=== PATIENT | female | born 1960 | race Caucasian/White ===

== ENCOUNTER 2016-08-30 08:07 | Outpatient (CLI) | payer MEDICARE | END 2016-08-30 08:08 | disposition home or self-care (01) | DX: C73 Malignant neoplasm of thyroid gland (principal); E78.2 Mixed hyperlipidemia; E55.9 Vitamin D deficiency, unspecified; Z79.899 Other long term (current) drug therapy; E03.9 Hypothyroidism, unspecified ==

== ENCOUNTER 2017-03-01 10:58 | Outpatient (CLI) | payer MEDICARE ==
--- NOTE | 2017-03-01 16:42 | XRAY Report ---
THREE VIEW CERVICAL SPINE: 03/01/2017 CLINICAL INDICATION: Neck pain. AP, lateral, odontoid views of the cervical spine demonstrate moderate degenerative disk and facet di sease. Disk space narrowing is worst at C5-6. There is no evidence of acute fracture. The preverte bral soft tissues are unremarkable. IMPRESSION: MODERATE DEGENERATIVE CHANGES. JOB #: [id number] EXT JOB #:[id number]
--- NOTE | 2017-03-01 16:43 | XRAY Report ---
RIGHT HIP AND PELVIS: 03/01/2017 CLINICAL INDICATION: Pain. Frontal view of the hips and pelvis, and frog-leg lateral view of the right hip demonstrate mild righ t hip osteoarthritis. Left hip replacement is noted, and there is fusion of the lower lumbar spine. IMPRESSION: MILD RIGHT HIP OSTEOARTHRITIS. JOB #: [id number] EXT JOB #:[id number]
== END 2017-03-01 10:59 | disposition home or self-care (01) ==
LOC: DI 10:58
PROVIDERS: ATTEND Physician Assistant Medical
DX: M50.30 Other cervical disc degeneration, unspecified cervical region (principal); M25.551 Pain in right hip; M16.11 Unilateral primary osteoarthritis, right hip
CPT/HCPCS: 72040

== ENCOUNTER 2017-04-14 13:43 | Outpatient (CLI) | payer MEDICARE ==
--- NOTE | 2017-04-14 21:46 | MRI Report ---
EXAM: MRI LUMBAR SPINE WITHOUT CONTRAST EXAM DATE: 04/14/2017 02:57 PM. CLINICAL HISTORY: SPINAL STENOSIS, LUMBAR REGION WITH NEUROGENIC CLAUDICATION. COMPARISON: MRI lumbar spine 08/19/2015. TECHNIQUE: Multiplanar, multisequence T1-weighted and fluid-sensitive sequences of the lumbar spine f rom T12 to S1 without contrast. Other: None. FINDINGS: Spinal Cord: The conus terminates at L1-L2. No signal abnormality in the visualized spinal cord. Alignment: Grade 1 anterolisthesis of L4 on L5 that appears similar to MR 08/19/2015. Bone Marrow: Five vcn-aix-yqsmicw lumbar vertebral bodies are assumed. Postsurgical changes of L4-L5 posterior spinal instrumented fusion, L4-L5 diskectomy with interbody fusion graft placement, and L4 laminectomy. No acute fracture. Again seen are vertebral body hemangiomas of the L2, S1, and S2 vertebral bodies. No new marrow replacement lesion. There is endplate change, Schmorl's node formation, and changes of diskectomy seen at L4-L5 that appe ars similar to prior study. No definite abnormal bone marrow edema seen. Disk Levels/Facets: T12-L1: Unremarkable. L1-L2: Small posterior disk bulge, arthritic facet disease, and prominent dorsal epidural fat. Minima l spinal canal stenosis. Mild right neural foraminal narrowing and minimal left neural foraminal narr owing. Findings are similar to. L2-L3: Small posterior disk bulge, ligamentum flavum thickening, arthritic facet disease, and promine nt dorsal epidural fat. Again seen is a medially projecting synovial cyst arising from the right face t that is unchanged from 08/19/2015. Fluid is seen within the right facet. There is moderate to severe spinal canal stenosis. Moderate to severe right and neyi-em-eebobtwp left neural foraminal narrowing . Findings are stable. L3-L4: Small posterior disk bulge, ligamentum flavum thickening, arthritic facet disease, and promine nt dorsal epidural fat. Mild spinal canal stenosis. Rwas-as-qnmdckin bilateral neural foraminal narro wing. Findings appear stable. L4-L5: Decompression of the thecal sac. Small posterior disk bulge and bilateral arthritic facet dise ase. No significant spinal canal stenosis. Mild to moderate bilateral neural foraminal narrowing. Fin dings appear stable. L5-S1: Small posterior disk bulge. Bilateral arthritic facet disease. Effacement of lateral recesses. Mild to moderate right and minimal left neural foraminal narrowing. Findings are stable. Musculature: There is mild fatty atrophy of the multifidus muscles beginning at L3 and extending to t he sacrum. There appears to be edema in the multifidus muscles at C7 levels. Other: The visualized pelvic cavity is unremarkable. IMPRESSION: 1. Postsurgical changes of L4-L5 posterior spinal instrumented fusion, L4-L5 diskectomy with interbod y fusion graft placement, and L4 laminectomy. 2. Grade 1 anterolisthesis of L4 on L5 that appears similar to MR 08/19/2015. 3. Multilevel degenerative changes appear similar to 08/19/2015. L1-L2: Minimal spinal canal stenosis. Mild right neural foraminal narrowing and minimal left neural f oraminal narrowing. L2-L3: Moderate to severe spinal canal stenosis. Moderate to severe right and ykme-ue-dpzmzasa left n eural foraminal narrowing. L3-L4: Mild spinal canal stenosis. Bthb-an-yebndoxn bilateral neural foraminal narrowing. L4-L5: No significant spinal canal stenosis. Mild to moderate bilateral neural foraminal narrowing. L5-S1: Effacement of lateral recesses. Mild to moderate right and minimal left neural foraminal narro wing. Comment: The following findings are so common in adults without low back pain that while we report th eir presence, they must be interpreted with caution and in the context of the clinical situation. (Re elie Campos et al, Spine 2001) Prevalence of findings in patients without low back pain: Disk degeneration (any evidence): 92% Disk desiccation/T2 signal loss: 83% Disk height loss: 56% Disk bulge: 64% Disk protrusion: 32% Annular tear/high intensity zone: 38% [facility] Referring Provider Line: [phone] SITE ID: [id number]
--- NOTE | 2017-04-15 14:24 | MRI Report ---
EXAM: MRI CERVICAL SPINE WITHOUT CONTRAST EXAM DATE: 04/14/2017 03:17 PM. CLINICAL HISTORY: Left-sided neck pain. Arm pain. COMPARISONS: None. TECHNIQUE: Multiplanar, multisequence T1-weighted and fluid-sensitive sequences of the cervical spine without contrast. Other: None. FINDINGS: Neurologic Structures: No focal lesion or signal abnormality of the cervical spinal cord. This includ es where the anterior spinal cord is mildly compressed by posterior disk protrusions with osteophyte at the C4-C5 and C5-C6 disk levels. Alignment: Generalized cervical lordosis straightening. Bone Marrow: Mild degenerative endplate signal changes. For example, anteriorly at the C6-C7 level. Interspace Levels/Facets: C1-C2: Unremarkable. C2-C3: No significant stenosis. Small midline posterior disk protrusion. Mild to moderate left side f acet arthropathy. C3-C4: Mild degenerative disk disease. No significant stenosis. Mild left facet arthropathy. Shallow posterior disk bulge. Anterior spurring. C4-C5: Mild to moderate degenerative disk disease. Moderate central stenosis from a broad-based poste rior disk protrusion with osteophyte. Ventral thecal sac effacement. Mild broad-based compression of the anterior surface of the spinal cord by the posterior disk protrusion. Midline AP dimension of the central canal is about 7 mm. Some CSF space is present dorsal to the cord. Mild right greater than l eft facet arthropathy. Mild to moderate bilateral foraminal stenosis. C5-C6: Moderate to marked degenerative disk disease. Anterior and posterior marginal spurring. Modera tely prominent central canal stenosis with anterior cord compression by the broad-based posterior dis k osteophyte complex. Midline AP dimension of the central canal is reduced to about 6.7 mm. Foraminal stenosis is present, minimal to mild on the right but moderate to severe on the left. Prominent left intraforaminal asymmetric left side disk protrusion with osteophytic spurring. C6-C7: Moderately prominent degenerative disk disease. Mild central stenosis without cord compression . Shallow posterior disk protrusion. Moderate to severe bilateral foraminal stenosis, left worse than right from uncinate process spurring accompanied by intraforaminal disk protrusion. Minimal facet ar thropathy. C7-T1: Mild to moderate degenerative disk disease. Shallow posterior disk protrusion at the left of m idline but no significant central stenosis. Foraminal stenosis is mild. Musculature: Mild diffuse posterior paraspinal muscle fatty atrophy. Other: No focal prevertebral edema. IMPRESSION: 1. Degenerative foraminal stenosis is most prominent at C4-C5 through C7-T1. 2. Posterior disk protrusions with osteophyte, with associated central stenosis and ventral cord impi ngement at multiple levels, most prominent at C4-C5 and C5-C6. Also present but less prominent at the remaining cervical levels. 3. No focal cord signal abnormality. 4. Potentially significant degenerative foraminal stenosis is present at multiple levels. Foraminal s tenosis appears most severe on the left at C5-C6 and bilaterally at C6-C7. [facility] Referring Provider Line: [phone] SITE ID: [id number]
== END 2017-04-14 13:44 | disposition home or self-care (01) ==
LOC: DI 13:43
PROVIDERS: ATTEND Orthopaedic Surgery
DX: M50.221 Other cervical disc displacement at C4-C5 level (principal); M50.31 Other cervical disc degeneration, high cervical region; M47.892 Other spondylosis, cervical region; M47.896 Other spondylosis, lumbar region; M51.36 Other intervertebral disc degeneration, lumbar region; Z98.1 Arthrodesis status; M43.16 Spondylolisthesis, lumbar region
CPT/HCPCS: 72141; 72148

== ENCOUNTER 2017-09-03 08:43 | Outpatient (CLI) | payer MEDICARE ==
--- NOTE | 2017-09-03 17:10 | Nuclear Medicine Report ---
EXAM: TRIPLE-PHASE BONE SCAN LIMITED EXAM DATE: 09/03/2017 02:33 PM. CLINICAL HISTORY: SPONTANEOUS RUPTURE OF QUADRICEPS TENDON, KNEE BRYN. COMPARISON: None available. TECHNIQUE: Patient was injected with 31.5 mCi of technetium 99m MDP intravenously with flow phase pranay ma camera imaging anteriorly over the knees, 5 seconds per frame for 1 minute. Subsequently, blood po ol images of the knees were obtained. The patient returned 3 hours later for multiple spot images of the knees. FINDINGS: Flow Phase: There is symmetric flow to bilateral extremities. Blood Pool Phase: There is photopenia from a left knee prostheses. No abnormal increased radiotracer accumulation. Delayed Phase: There is asymmetric increased radiotracer uptake in the distal left femur and proximal left tibia compared to the right. IMPRESSION: 1. No abnormal hyperemia. 2. Asymmetric delayed phase increased uptake in the distal left femur and proximal left tibia. [facility] Referring Provider Line: [phone] SITE ID: [id number]
== END 2017-09-03 08:44 | disposition home or self-care (01) ==
LOC: DI 08:43
PROVIDERS: ATTEND Physician Assistant Medical
DX: M66.862 Spontaneous rupture of other tendons, left lower leg (principal)
CPT/HCPCS: 78315; A9503

== ENCOUNTER 2017-10-03 14:43 | Outpatient (CLI) | payer MEDICARE ==
--- NOTE | 2017-10-03 18:05 | MRI Report ---
EXAM: MRI LEFT FEMUR/THIGH WITHOUT CONTRAST EXAM DATE: 10/03/2017 03:52 PM. CLINICAL HISTORY: Quadriceps muscle rupture, left. Left leg pain. COMPARISON: None. TECHNIQUE: Multiplanar, multisequence T1-weighted and fluid-sensitive sequences of the bilateral thig hs without contrast. Other: Motion artifact. FINDINGS: Bones: No fractures or subluxations. No marrow edema. No bone lesions. Joint Spaces: Hip arthroplasty. Knee arthroplasty. Tendons: The visualized hamstring origins are unremarkable. Distal quadriceps tendon is attenuated bu t does appear to be intact. No focal fluid-filled gaps. Musculature: Moderate fatty atrophy of the quadriceps musculature. Other: The visualized sciatic and femoral nerves are unremarkable. The subcutaneous tissues are unrem arkable. IMPRESSION: 1. Distal quadriceps tendon is attenuated, appears to be intact. No focal fluid collections. 2. Hip arthroplasty and knee arthroplasty. 3. Moderate fatty atrophy of the quadriceps musculature. [facility] MUSCULOSKELETAL RADIOLOGY SECTION Referring Provider Line: [phone] SITE ID: [id number]
== END 2017-10-03 14:44 | disposition home or self-care (01) ==
LOC: DI 14:43
PROVIDERS: ATTEND Orthopaedic Surgery Adult Reconstructive Orthopaedic Surgery
DX: M62.552 Muscle wasting and atrophy, not elsewhere classified, left thigh (principal); Z96.642 Presence of left artificial hip joint; Z96.652 Presence of left artificial knee joint

== ENCOUNTER 2018-03-21 16:33 | Emergency (ER) | payer MEDICARE ==
--- NOTE | 2018-03-21 18:10 | ED Physician Documentation ---
PD HPI LOWER EXT INJURY - Stated complaint Stated Complaint: KNEE INJURY - Chief complaint Chief Complaint: Ext Problem - History obtained from History obtained from: Patient - History of Present Illness PD HPI LOW EXT INJURY LOCATION: Right, Knee Type of injury: Fall, Blunt / blow (she fell and landed onto right knee, with laceration infrapatellar area. Able to walk and stand without joint pain.) Timing - onset: Today Timing - details: Abrupt onset Worsened by: Palpating. No: Moving Associated symptoms: No: Weakness, Numbness, Swelling Similar symptoms before: Has not had sx before Recently seen: Not recently seen Review of Systems Constitutional: denies: Fever, Chills Cardiac: denies: Chest pain / pressure, Palpitations Respiratory: denies: Dyspnea, Cough Neurologic: denies: Focal weakness, Numbness, Altered mental status PD PAST MEDICAL HISTORY - Past Medical History Cardiovascular: None Respiratory: None Endocrine/Autoimmune: None GI: None : Chronic bladder infection HEENT: None Psych: None Musculoskeletal: Osteoarthritis, Rheumatoid arthritis, Chronic back pain - Past Surgical History General: Appendectomy Ortho: Hip replacement, Knee replacement, Spine surgery /CNC OPERATOR: Hysterectomy HEENT: Other - Present Medications Home Medications: Ambulatory Orders Medication Instructions Recorded Confirmed Ibuprofen [Advil Liqui-Gels] 200 mg ORAL DAILY 12/18/13 08/23/14 Tramadol HCl [Ultram] 50 mg ORAL BID PRN 12/18/13 08/23/14 Levothyroxine [Synthroid] 50 mcg 08/23/14 08/23/14 - Allergies Allergies/Adverse Reactions: Allergies Allergy/AdvReac Type Severity Reaction Status Date / Time No Known Drug Allergies Allergy Verified 03/21/18 17:40 - Social History Does the pt smoke?: No Smoking Status: Never smoker PD ED PE NORMAL - Vitals Vital signs reviewed: Yes - General General: Alert and oriented X 3, No acute distress, Well developed/nourished - HEENT HEENT: Atraumatic - Cardiac Cardiac: RRR, No murmur - Respiratory Respiratory: Clear bilaterally - Abdomen Abdomen: Soft, Non tender - Derm Derm: Normal color, Warm and dry - Extremities Extremities: Other (right knee with laceration in infrapatellar area 3 cm, without FB. Goes to fatty tissue, does not go into bursa. No effusion. Good ROM of the knee and good full extension of quads muscles. ) - Neuro Neuro: Alert and oriented X 3, No motor deficit, No sensory deficit, Normal speech Results - Vitals Vitals: Vital Signs - 24 hr 03/21/18 03/21/18 17:34 18:59 Temperature 37.4 C 37.0 C Heart Rate 88 86 Respiratory 16 12 Rate Blood Pressure 164/113 H 143/88 H O2 Saturation 97 98 Oxygen O2 Source Room air Procedures - Laceration (location) right knee infrapatellar Length in cm: 3 Wound type: Linear, Into subcut fat (not into joint nor bursa), Clean Neurovascular status: Sensory intact, Motor intact Tendon involvement: Tendon intact (fuul extension at knee without pain) Anesthesia: Lidocaine 1% with epi Wound Preparation: Irrigated copiously NS Deep layer closure: Vicryl, size #-0 - enter number (4), # sutures - enter number (4) Skin layer closure: Nylon, Running, Size #-0 - enter number (4) Other: Patient tolerated well, No complications, Neurovascular intact, Dressing applied, Tetanus UTD Complexity: Simple PD MEDICAL DECISION MAKING - ED course Complexity details: considered differential (good ROM of the knee and no bony tenderness. Has laceration infrapatellar. ), d/w patient - Sepsis Event Vital Signs: Vital Signs - 24 hr 03/21/18 03/21/18 17:34 18:59 Temperature 37.4 C 37.0 C Heart Rate 88 86 Respiratory 16 12 Rate Blood Pressure 164/113 H 143/88 H O2 Saturation 97 98 Oxygen O2 Source Room air Departure - Departure Disposition: 01 Home, Self Care Clinical Impression: Fall from slip, trip, or stumble Qualifiers: Encounter type: initial encounter Qualified Code(s): W01.0XXA - Fall on same level from slipping, tripping and stumbling without subsequent striking against object, initial encounter Laceration of right knee Qualifiers: Encounter type: initial encounter Qualified Code(s): S81.011A - Laceration without foreign body, right knee, initial encounter Condition: Stable Record reviewed to determine appropriate education?: Yes Instructions: ED Laceration All Follow-Up: Lucia Gonzalez PA-C [Primary Care Provider] - Comments: It is okay to wash and shower. Clean off the wound twice a day with soap and water, or peroxide and water. Apply some antibiotic ointment to it to keep it moist. Also to watch for signs of infection such as purulence, redness or increasing pain. Return to your primary care or the ER at the specified time for suture removal. Suture removal 10-12 days. Tylenol or ibuprofen if needed for pains. Discharge Date/Time: 03/21/18 18:59
[2018-03-21] MEDS ORDERED: LIDOCAINE MPF 1%-EPI 1:200000 30 ML VIAL SUBQ STA (18:17)
[2018-03-21 19:01] VITALS: BP 143/88
== END 2018-03-21 18:59 | disposition home or self-care (01) ==
LOC: ED 16:33
DX: S81.011A Laceration without foreign body, right knee, initial encounter (principal); W18.30XA Fall on same level, unspecified, initial encounter; W22.09XA Striking against other stationary object, initial encounter; Y92.832 Beach as the place of occurrence of the external cause; Z96.649 Presence of unspecified artificial hip joint; Z96.659 Presence of unspecified artificial knee joint
CPT/HCPCS: 12002; 99282; 99283

== ENCOUNTER 2018-10-11 16:42 | Outpatient (CLI) | payer MEDICARE ==
[2018-10-11] MEDS ORDERED: GADOBUTROL 10 MMOL/10 ML VIAL ONE (17:55)
[2018-10-11] MEDS ORDERED: GADOBUTROL 10 MMOL/10 ML VIAL IVP ONE (18:17)
--- NOTE | 2018-10-13 04:44 | MRI Report ---
Reason: OTHER INTERVERTEBRAL DISC DEGENERATION, LUMBOSACRA Procedure Date: 10/11/2018 Accession Number: [id number] / [id number] Procedure: MRI - Lumbar Spine W/WO CPT Code: FULL RESULT: EXAM: MRI LUMBAR SPINE WITHOUT AND WITH CONTRAST EXAM DATE: 10/11/2018 05:32 PM. CLINICAL HISTORY: Back pain. COMPARISONS: LUMBAR SPINE W/O 04/14/2017 2:04 PM. TECHNIQUE: Multiplanar, multisequence T1-weighted and fluid-sensitive sequences of the lumbar spine from T10 to S1 before and after administration of intravenous contrast. Other: None. IV contrast: . FINDINGS: Neurologic Structures: The conus terminates at L1. The conus medullaris is unremarkable. Alignment: Fused grade 1 anterolisthesis at L4-L5 is stable. Bone Marrow: Five rgx-ugp-zossbry lumbar vertebral bodies are assumed. Anterior and posterior fusion changes are again demonstrated at L4-L5. Osseous hemangiomas are noted in the L2 and S1 vertebral bodies, benign findings. No abnormal bone marrow edema or enhancement is identified. Disk Levels/Facets: T10-T11: On sagittal images, there is mild bilateral foraminal narrowing due to facet arthropathy. A small disk bulge is present resulting in mild spinal canal stenosis without impingement on the spinal cord. T11-T12: On sagittal images, there is moderate left and mild right foraminal narrowing due to facet arthropathy. The spinal canal is patent. T12-L1: Bilateral facet arthropathy is present without spinal canal or foraminal stenosis. These findings are stable. L1-L2: A disk bulge and ligamentum flavum infolding result in mild spinal canal stenosis. Superimposed bilateral facet arthropathy results in mild bilateral foraminal narrowing. These findings are stable. L2-L3: Interval laminectomy has been performed. However, there is persistent moderate spinal canal stenosis due to disk bulging and prominent bilateral facet arthropathy. There is moderate bilateral foraminal narrowing, stable. The degree of spinal canal stenosis has mildly decreased. L3-L4: A disk bulge with facet arthropathy and ligamentum flavum infolding result in mild spinal canal stenosis. There is mild bilateral foraminal narrowing. These findings are stable. L4-L5: Anterior and posterior fusion changes are present. The spinal canal has been decompressed. The foramina are patent. L5-S1: A disk bulge and bilateral facet arthropathy result in mild spinal canal stenosis. There is mild bilateral foraminal narrowing. These findings are stable. Spinal Canal: No enhancing masses within the spinal canal. No epidural abscess. Musculature: There is fatty atrophy of the posterior paraspinal muscles, most pronounced at the surgical levels. Other: A small left parapelvic renal cyst is noted. IMPRESSION: 1. Compared to the lumbar spine MRI from 04/14/2017, the patient has undergone dorsal decompression at L2-L3. There is decreased but persistent spinal canal stenosis now moderate, previously severe. 2. Stable anterior and posterior fusion is present at L4-L5. 3. Multilevel degenerative changes at other lumbar levels appear stable without worsening spinal canal or foraminal stenosis. 4. No abnormal enhancement is identified on the study to suggest lumbar spinal infection or tumor. Comment: The following findings are so common in adults without low back pain that while we report their presence, they must be interpreted with caution and in the context of the clinical situation. (Reference Magdavik et al, Spine 2001) Prevalence of findings in patients without low back pain: Disk degeneration (any evidence): 92% Disk desiccation/T2 signal loss: 83% Disk height loss: 56% Disk bulge: 64% Disk protrusion: 32% Annular tear/high intensity zone: 38% [facility]
== END 2018-10-11 16:43 | disposition home or self-care (01) ==
LOC: DI 16:42
PROVIDERS: ATTEND Orthopaedic Surgery
DX: M51.36 Other intervertebral disc degeneration, lumbar region (principal); M48.061 Spinal stenosis, lumbar region without neurogenic claudication; M51.37 Other intervertebral disc degeneration, lumbosacral region; M48.07 Spinal stenosis, lumbosacral region; M47.9 Spondylosis, unspecified; Z98.1 Arthrodesis status; M51.34 Other intervertebral disc degeneration, thoracic region; M48.04 Spinal stenosis, thoracic region
CPT/HCPCS: 72158; A9585

== ENCOUNTER 2019-08-14 16:47 | Outpatient (CLI) | payer MEDICARE ==
[2019-08-14 17:20] LABS: BASOPHILS # (AUTO) 0.1 10^3/uL (0.0-0.1); BASOPHILS % (AUTO) 0.9 %; EOSINOPHILS # (AUTO) 0.3 10^3/uL (0.0-0.7); EOSINOPHILS % (AUTO) 3.6 %; HGB - HEMOGLOBIN 14.9 g/dL (12.0-16.0); LYMPHOCYTES # (AUTO) 2.6 10^3/uL (1.5-3.5); LYMPHOCYTES % (AUTO) 34.2 %; MEAN CORPUSCULAR HEMOGLOBIN 30.1 pg (27.0-31.0); MEAN CORPUSCULAR HGB CONC 32.8 g/dL (32.0-36.0); MEAN CORPUSCULAR VOLUME 91.7 fL (81.0-99.0); MEAN PLATELET VOLUME 9.2 fL (7.9-10.8); MONOCYTES # (AUTO) 0.7 10^3/uL (0.0-1.0); MONOCYTES % (AUTO) 8.8 %; NEUTROPHILS # (AUTO) 3.9 10^3/uL (1.5-6.6); NEUTROPHILS % (AUTO) 52.4 %; PLT - PLATELET COUNT 327 10^3/uL (130-450); RED BLOOD COUNT 4.95 10^6/uL (4.20-5.40); RED CELL DISTRIBUTION WIDTH 13.8 % (12.0-15.0); WHITE BLOOD COUNT 7.5 x10^3/uL (4.8-10.8)
[2019-08-14 17:31] LABS: ALBUMIN 4.6 g/dL (3.2-5.5); ALBUMIN/GLOBULIN RATIO 1.2 (1.0-2.2); BILIRUBIN,TOTAL 0.6 mg/dL (0.2-1.0); CALCIUM 9.6 mg/dL (8.5-10.3); TOTAL PROTEIN 8.3 g/dL (6.7-8.2)
[2019-08-14 17:48] LABS: THYROID STIMULATING HORMONE 17.56 uIU/mL (0.34-5.60)
[2019-08-14 17:50] LABS: FREE T4 (FREE THYROXINE) 0.78 ng/dL (0.58-1.64)
== END 2019-08-14 16:48 | disposition home or self-care (01) ==
LOC: LAB 16:47
PROVIDERS: ATTEND Family Medicine
DX: M79.671 Pain in right foot (principal); M25.562 Pain in left knee; M05.9 Rheumatoid arthritis with rheumatoid factor, unspecified; R20.0 Anesthesia of skin; R20.2 Paresthesia of skin; C80.1 Malignant (primary) neoplasm, unspecified; E55.9 Vitamin D deficiency, unspecified; E78.2 Mixed hyperlipidemia; M54.5 Low back pain; Z85.850 Personal history of malignant neoplasm of thyroid
CPT/HCPCS: 36415; 80053; 84439; 84443; 84481; 85025

== ENCOUNTER 2019-11-12 09:08 | Outpatient (CLI) | payer MEDICARE | END 2019-11-12 23:59 | disposition home or self-care (01) | LOC: LAB.WCP 09:08 | PROVIDERS: ATTEND Family Medicine | DX: E03.9 Hypothyroidism, unspecified (principal) | CPT/HCPCS: 36415; 84443 ==

== ENCOUNTER 2020-10-05 08:00 | Outpatient (CLI) | payer MEDICARE ==
[2020-10-05 18:20] LABS: THYROID STIMULATING HORMONE 10.21 uIU/mL (0.34-5.60)
[2020-10-05 18:21] LABS: FREE T3 3.39 pg/mL (2.5-3.9)
[2020-10-05 18:25] LABS: FREE T4 (FREE THYROXINE) 1.06 ng/dL (0.58-1.64)
== END 2020-10-05 23:59 | disposition home or self-care (01) ==
LOC: LAB.WCP 08:00
PROVIDERS: ATTEND Family Medicine
DX: E03.9 Hypothyroidism, unspecified (principal)
CPT/HCPCS: 36415; 84439; 84443; 84481

== ENCOUNTER 2020-10-14 09:56 | Outpatient (CLI) | payer MEDICARE ==
--- NOTE | 2020-10-14 10:45 | XRAY Report ---
PROCEDURE: Hip w/Pelvis 1V LT INDICATIONS: LEFT HIP BURRSITIS TECHNIQUE: AP pelvis with lateral view(s) of the left hip(s). COMPARISON: None. FINDINGS: Bones: Patient is status post prior left total hip arthroplasty. Alignment of left hip is anatomic. No gross hardware loosening or failure. No fractures or dislocations. Pelvic ring appears intact. N o suspicious bony lesions. Post fusion changes in lower lumbar spine at L4-5 level is seen. Soft tissues: The visualized bowel gas pattern is normal. No suspicious soft tissue calcifications. IMPRESSION: Prior left total hip arthroplasty. Anatomic left hip alignment. No evidence of hardware c omplication. No fracture or dislocation. No gross soft tissue abnormality. Reviewed by: Holger Valdes MD on 10/14/2020 10:43 AM PDT Approved by: Holger Valdes MD on 10/14/2020 10:43 AM PDT Station ID: [id number]
== END 2020-10-14 23:59 | disposition home or self-care (01) ==
LOC: DI.N 09:56
PROVIDERS: ATTEND Orthopaedic Surgery
DX: Z96.642 Presence of left artificial hip joint (principal)

== ENCOUNTER 2021-08-24 09:30 | Outpatient (CLI) | payer OTHER | END 2021-08-24 09:31 | disposition home or self-care (01) | LOC: LAB 09:30 | PROVIDERS: ATTEND Internal Medicine | DX: E07.9 Disorder of thyroid, unspecified (principal) | CPT/HCPCS: 36415; 84443 ==

== ENCOUNTER 2021-11-04 12:39 | Outpatient (CLI) | payer MEDICARE, OTHER ==
--- NOTE | 2021-11-10 15:13 | CT Report ---
PROCEDURE: CERVICAL SPINE WO INDICATIONS: Neck pain TECHNIQUE: Noncontrast 3 mm thick sections acquired from the skull base to the T4 level. Sagittal and coronal r eformats were then constructed. For radiation dose reduction, the following was used: automated exp osure control, adjustment of mA and/or kV according to patient size. COMPARISON: Correlation with cervical spine MRI 04/14/2017. FINDINGS: Post surgical changes of anterior interbody fixation at C4-C5 and C5-C6. Mature osseous fusion across the C5-C6 intervertebral disc spaces. There is no fusion across the C4-C5 disc space. Good incorpora tion of the interbody devices at both levels. Straining of the usual cervical lordosis. Degenerative anterolisthesis of C2 on C3 measuring 2 mm and C3 on C4 measuring 3 mm. Otherwise normal alignment. Vertebral body heights maintained. Regional soft tissues are within normal limits. At C2-C3, no spinal canal or neural foraminal stenosis. At C3-C4, moderate neural foraminal narrowing on the right due to facet and uncovertebral hypertrophy . Mild neural foraminal narrowing on the left. Posterior disc-osteophyte complex flattens the ventral thecal sac. At C4-C5, posterior disc-osteophyte complex flattens and indents the ventral cord slightly. Moderate right and mild left neural foraminal stenosis due to facet and uncovertebral hypertrophy. At C5-C6, severe left and moderate right neural foraminal stenosis due to facet and uncovertebral hyp ertrophy. Mild spinal canal stenosis due to posterior disc-osteophyte complex with some buckling of t he ligamentum flavum. At C6-C7, mild spinal canal stenosis due to posterior disc-osteophyte complex. Severe bilateral neura l foraminal stenosis due to facet and uncovertebral hypertrophy. At C7-T1, moderate left and mild right neural foraminal stenosis due to facet and uncovertebral hyper trophy. No spinal canal stenosis. IMPRESSION: Multilevel multifactorial degenerative changes. Mild spinal canal stenosis at C6-C7 and C5-C6. Varying degrees of neural foraminal stenosis up to severe. Reviewed by: Juanjo Brush MD on 11/10/2021 3:11 PM PDT Approved by: Juanjo Brush MD on 11/10/2021 3:11 PM PDT Station ID: [id number]
== END 2021-11-04 12:40 | disposition home or self-care (01) ==
LOC: DI 12:39
PROVIDERS: ATTEND Orthopaedic Surgery
DX: M47.22 Other spondylosis with radiculopathy, cervical region (principal); M48.02 Spinal stenosis, cervical region; M48.03 Spinal stenosis, cervicothoracic region; M43.12 Spondylolisthesis, cervical region; Z98.1 Arthrodesis status